=== PATIENT | male | born 1960 | race Caucasian/White ===

== ENCOUNTER 2020-11-03 11:08 | Emergency (ER) | payer OTHER ==
[2020-11-03] MEDS ORDERED: Metoclopramide 10 MG/10 ML UDCUP ONE (12:23)
[2020-11-03] MEDS ORDERED: Morphine 4 MG/ML VIAL ONE (12:23)
[2020-11-03] MEDS ORDERED: Metoclopramide HCl 10 MG/2 ML VIAL ONE (12:24)
[2020-11-03 12:49] LABS: #Lymphocytes 0.6 thou/uL (1.20-3.40); #Monocytes 0.7 thou/uL (0.11-0.59); #Neutrophils 10.7 thou/uL (1.40-6.50); %Basophils 0.4 % (0.0-1.0); %Eosinophils 0.3 % (0.0-10.0); %Lymphocytes 5.1 % (21.0-51.0); %Monocytes 5.6 % (0.0-10.0); %Neutrophils 88.7 % (42.0-75.0); Mean Corpuscular HGB CONC 34.5 g/dL (32.0-36.0); Mean Corpuscular Hemoglobin 32.6 pg (27.0-31.0); Mean Corpuscular Volume 94.6 fL (78.0-98.0); Mean Platelet Volume 8.6 fL (7.4-10.4); Platelet Count 209 thou/uL (130-400); RBC Distribution Width 11.3 % (11.5-14.5); Red Blood Cell (RBC) Count 5.52 mill/uL (4.70-6.10)
[2020-11-03 13:10] LABS: ALT (SGPT) 17 U/L (8-55); AST (SGOT) 14 U/L (5-34); Albumin 4.3 g/dL (3.5-5.0); Alkaline Phosphatase 70 U/L (40-110); Anion Gap 12 mmol/L (10-20); BUN (Urea Nitrogen) 13 mg/dL (8.4-25.7); Bilirubin, Total 1.5 mg/dL (0.2-1.2); Calc. Creatinine Clearance 0 mL/min (70-130); Calcium 8.9 mg/dL (7.8-10.44); Carbon Dioxide 28 mmol/L (22-29); Chloride 103 mmol/L (98-107); Globulin 2.7 g/dL (2.4-3.5); Glucose 115 mg/dL (70-105); Lipase 25 U/L (8-78); Potassium 4.1 mmol/L (3.5-5.1); Sodium 139 mmol/L (136-145)
== END 2020-11-03 14:28 | disposition home or self-care (01) ==
LOC: ERS 11:08
DX: K80.20 Calculus of gallbladder without cholecystitis without obstruction (principal)
CPT/HCPCS: 76705; 80053; 83690; 84484; 85025; 93005; 96374; 96375; J2270; J2765

== ENCOUNTER 2020-11-09 06:01 | Day surgery (SDC) | payer OTHER ==
[2020-11-07 12:15] VITALS: BMI 25.0
[2020-11-09] MEDS ORDERED: Fentanyl 100 MCG/2 ML VIAL ONE ×3 (06:38→09:24)
[2020-11-09] MEDS ORDERED: Lidocaine 2% Jelly 5 ML TUBE ONE (06:39)
[2020-11-09] MEDS ORDERED: XYLOCAINE 2%-EPI 1:100,000 20 ML VIAL ONE (06:59)
[2020-11-09] MEDS ORDERED: Bupivacaine 0.25% HCL 30 ML VIAL ONE (06:59)
[2020-11-09] MEDS ORDERED: Iothalamate Meglumine 60% 50 ML VIAL FS ONE (07:45)
--- NOTE | 2020-11-09 09:03 | OP ---
DATE OF PROCEDURE: 11/09/2020 PREOPERATIVE DIAGNOSIS: Symptomatic gallstones. POSTOPERATIVE DIAGNOSIS: Symptomatic gallstones. PROCEDURE PERFORMED: Laparoscopic cholecystectomy with intraoperative cholangiogram. ANESTHESIA: General. ESTIMATED BLOOD LOSS: Minimal. COMPLICATIONS: None. SPECIMEN: Gallbladder. FINDINGS: Normal cholangiogram. DESCRIPTION OF PROCEDURE: The patient was taken to the operating room and laid supine on the operating room table. After general anesthetic was obtained, the abdomen was prepped and draped in a sterile fashion. Curved incision was made below the umbilicus. Cautery was dissected down to and score the fascia. Abdominal cavity was entered bluntly using a Joanna clamp. Holding stitch of PDS was placed on each side of fascia. Shira trocar was placed. High-flow pneumoperitoneum was obtained. An upper midline 5 mm port and 2 right upper quadrant 5 mm ports were placed under direct visualization. The gallbladder was retracted from the gallbladder fossa. The peritoneum was opened anteriorly and posteriorly. The critical view triangle was seen showing only the cystic duct and cystic artery branching medial to lateral and no other branching structures. A clip was placed high on the cystic duct and a small ductotomy was made just proximal to that. A cholangiocatheter was brought in through a separate stab incision and placed in the cystic duct and a cholangiogram was performed, which showed good contrast flow into the duodenum without obstruction. Cholangiocatheter was removed and 2 clips were placed proximally and one distally and the cystic duct was cut using laparoscopic scissors. The cystic artery was taken using 2 clips proximally and one clip distally, cut using laparoscopic scissors. The gallbladder was retracted out of the gallbladder fossa using cautery, placed in an Endo Catch bag and brought out through the Shira. There was no bleeding or bile in the liver bed. The right upper quadrant was irrigated using sterile solution. All port sites were infiltrated using local anesthetic. All ports were removed under camera visualization. Pneumoperitoneum was let down. PDS was used to close the fascial defect below the umbilicus. All incisions were closed using 4-0 Monocryl and Dermabond. The patient was sent to Recovery in stable condition. All instrument counts, needle counts, and lap counts were correct. Job ID: [id number]
--- NOTE | 2020-11-09 10:33 | RAD ---
OPERATIVE CHOLANGIOGRAM: Date: 11/09/2020 A single image from the OR presented during operative cholangiogram procedure. INDICATION: Intraoperative cholangiogram during surgery. FINDINGS/IMPRESSION: The single view shows opacification of the common bile duct. A portion of the bile ducts are obscured by overlying instrument. There is no filling defect or stricture identified. POS: [facility]
[2020-11-09] MEDS ORDERED: Ondansetron PF 4 MG/2 ML Vial ONE (11:15)
[2020-11-09] MEDS ORDERED: ePHEDrine 50 MG/ML VIAL ONE (11:15)
[2020-11-09] MEDS ORDERED: Lidocaine 1% PF 5 ML VIAL ONE (11:15)
[2020-11-09] MEDS ORDERED: Glycopyrrolate 0.2 MG/ML 5 ML SYRINGE ONE ×2 (11:15)
[2020-11-09] MEDS ORDERED: PROPOFOL 200 MG/20 ML VIAL ONE (11:15)
[2020-11-09] MEDS ORDERED: Ketorolac Tromethamine 30 MG/ML VIAL ONE (11:15)
[2020-11-09] MEDS ORDERED: Dexamethasone 20 MG/5 ML VIAL ONE (11:15)
[2020-11-09] MEDS ORDERED: Rocuronium Bromide 10 MG/ML (10ML VIAL) ONE (11:15)
== END 2020-11-09 11:05 | disposition home or self-care (01) ==
LOC: SDC 06:01
PROVIDERS: ATTEND Surgery
PROC: 0FT44ZZ Resection of Gallbladder, Percutaneous Endoscopic Approach (ICD-10-PCS; principal; 2020-11-09)
PROC: BF121ZZ Fluoroscopy of Gallbladder using Low Osmolar Contrast (ICD-10-PCS; principal; 2020-11-09)
DX: K80.10 Calculus of gallbladder with chronic cholecystitis without obstruction (principal); Z88.0 Allergy status to penicillin
CPT/HCPCS: 47532; 88304; J0690; J1100; J1885; J2405; J2704; J3010; J3490; S0020

== ENCOUNTER 2021-03-14 22:57 | Observation (INO) | payer OTHER ==
[~2021-03-14 22:57] MED LIST: Iopamidol-370 76% 500 ML 1 ML ONE
[2021-03-14] MEDS ORDERED: Ondansetron PF 4 MG/2 ML Vial ONE (23:23)
[2021-03-14 23:34] LABS: #Eosinphils 0.3 thou/uL (0.0-0.7); #Lymphocytes 1.8 thou/uL (1.20-3.40); #Monocytes 0.9 thou/uL (0.11-0.59); #Neutrophils 9.9 thou/uL (1.40-6.50); %Basophils 0.4 % (0.0-1.0); %Eosinophils 2.2 % (0.0-10.0); %Lymphocytes 13.6 % (21.0-51.0); %Neutrophils 76.9 % (42.0-75.0); Hemoglobin 18.5 g/dL (14.0-18.0); Mean Corpuscular HGB CONC 33.9 g/dL (32.0-36.0); Mean Corpuscular Volume 94.3 fL (78.0-98.0); Mean Platelet Volume 8.8 fL (7.4-10.4); Platelet Count 220 thou/uL (130-400); RBC Distribution Width 12.1 % (11.5-14.5); Red Blood Cell (RBC) Count 5.78 mill/uL (4.70-6.10); White Blood Cell (WBC) Count 12.9 thou/uL (4.8-10.8)
[2021-03-14] MEDS ORDERED: Morphine 4 MG/ML VIAL ONE (23:36)
[2021-03-15 00:19] LABS: Bilirubin Negative (Negative); Blood, Urine Negative (Negative); Glucose, Urine (Dipstick) Negative (Negative); Ketone, Urine 15 mg/dL (Negative); Leukocyte Negative (Negative); Nitrite Negative (Negative); Protein, Urine (Dipstick) Negative (Neg-Trace); pH, Urine 7.5 (5.0-9.0)
[2021-03-15 00:20] LABS: Clarity Clear (Clear)
[2021-03-15 00:21] LABS: Bacteria/HPF None Seen HPF (None Seen); RBC/HPF 0-3 HPF (0-3); Squamous Epithelial None Seen HPF (0-3); WBC/HPF None Seen HPF (0-3)
[2021-03-15 00:25] LABS: ALT (SGPT) 16 U/L (8-55); AST (SGOT) 15 U/L (5-34); Albumin 3.8 g/dL (3.5-5.0); Alkaline Phosphatase 68 U/L (40-110); Anion Gap 10 mmol/L (10-20); BUN (Urea Nitrogen) 14 mg/dL (8.4-25.7); Bilirubin, Total 1.3 mg/dL (0.2-1.2); Calc. Creatinine Clearance 0 mL/min (70-130); Calcium 8.9 mg/dL (7.8-10.44); Carbon Dioxide 27 mmol/L (22-29); Chloride 102 mmol/L (98-107); Globulin 2.4 g/dL (2.4-3.5); Glucose 139 mg/dL (70-105); Protein, Total 6.2 g/dL (6.0-8.3); Sodium 135 mmol/L (136-145)
[2021-03-15] MEDS ORDERED: Benzocaine 20% Spray 60 ML CAN ONE (00:54)
[2021-03-15] MEDS ORDERED: Morphine 4 MG/ML VIAL ONE (01:00)
[2021-03-15] MEDS ORDERED: Lorazepam 2 MG/ML VIAL ONE (01:34)
[2021-03-15 02:30] VITALS: BMI 25.8
[2021-03-15] MEDS ORDERED: Ondansetron PF 4 MG/2 ML Vial IVP PRN (02:45)
[2021-03-15] MEDS ORDERED: Sodium Chloride 0.9% 1,000 ML IV SCH (02:45)
[2021-03-15] MEDS ORDERED: Acetaminophen 325 MG TAB PO PRN (02:45)
[2021-03-15] MEDS ORDERED: Ondansetron ODT 4 MG TAB SL PRN (02:45)
[2021-03-15 03:52] LABS: SARS-CoV-2 NAA Rapid Test Not Detected (NotDetected)
[2021-03-15 10:43] VITALS: BP 125/80; TEMP 97.6
== END 2021-03-15 11:10 | disposition home or self-care (01) ==
LOC: ERS 22:57 → SURG A 03-15 00:55 → INTOOBSV 03-15 00:55
PROVIDERS: ADMIT Specialist; ATTEND Specialist
DX: R10.33 Periumbilical pain (principal); Z88.0 Allergy status to penicillin; Z90.49 Acquired absence of other specified parts of digestive tract; Z20.822 Contact with and (suspected) exposure to COVID-19
CPT/HCPCS: 36415; 43752; 74177; 80053; 81003; 83690; 84484; 85025; 93005; 96374; 96375; 96376; G0378; J2060; J2270; J2405; Q9967; U0002; U0005